=== PATIENT | female | born 1940 | race Caucasian/White ===

== ENCOUNTER → 2017-02-06 | Outpatient (CLI) | payer MEDICARE, OTHER, MEDICAID ==
[~2017-02-06] VITALS: Ht 160 cm; Wt 48.1 kg
[~2017-02-06] MED LIST: ASPI81TA85 PO; CALCTAB7 PO; CO Q100C10 PO; CRAN125T PO; FISH1000 PO; FOLI800C PO; LIDOCAINE 2% INJ 100 MG/5 ML SDV (FOR ANES.) As Ordered ONE; MAGN250T9 PO; NS 1,000 ML IV ONE; PROPOFOL 200 MG/20 ML VIAL As Ordered ONE; SYNT88TA2 PO; VITA100T20 PO; VITA100T96 PO; VITA20008 PO; tumeric PO
--- NOTE | 2017-02-06 08:15 | ROOR ---
Patient Name: Marilee Jones Procedure Date: 02/06/2017 7:53 AM Date of : 1940 Age: 76 Room: [facility] Gender: Female Note Status: Finalized Procedure: Colonoscopy Indications: High risk colon cancer surveillance: Personal history of colonic polyps, Last colonoscopy: May 2014, Family history of colon cancer in a first-degree relative (father 60 y.o) Providers: Nam LUNA MD Referring MD: Rachael SMITH DO Requestlia Provider: Medicines: Monitored Anesthesia Care Complications: No immediate complications. Procedure: Pre-Anesthesia Assessment: - The heart rate, respiratory rate, oxygen saturations, blood pressure, adequacy of pulmonary ventilation, and response to care were monitored throughout the procedure. The Colonoscope was introduced through the anus and advanced to the cecum, identified by appendiceal orifice and ileocecal valve. The colonoscopy was performed without difficulty. The patient tolerated the procedure well. The quality of the bowel preparation was good. Findings: The perianal and digital rectal examinations were normal. Two sessile polyps were found in the hepatic flexure. The polyps were diminutive in size. These polyps were removed with a cold snare. Resection and retrieval were complete. Multiple medium-mouthed diverticula were found in the sigmoid colon. (moderate to severe) Small Internal Hemorrhoids. The exam was otherwise without abnormality. Impression: - Two diminutive polyps at the hepatic flexure, removed with a cold snare. Resected and retrieved. - Diverticulosis in the sigmoid colon. - Small Internal Hemorrhoids. - The examination was otherwise normal. Recommendation: - Repeat colonoscopy in 5 years for surveillance. Nam Luna MD Nam LUNA MD 02/06/2017 8:15:26 AM This report has been signed electronically. Number of Addenda: 0 Note Initiated On: 02/06/2017 7:53 AM Estimated Blood Loss: Estimated blood loss: none.
[2017-02-06 08:35] VITALS: BP 152/65
== END | disposition home or self-care (01) ==
LOC: M OPP 06:57
PROVIDERS: ATTEND Internal Medicine Gastroenterology
DX: Z12.11 Encounter for screening for malignant neoplasm of colon (principal); Z86.010 Personal history of colon polyps; Z80.0 Family history of malignant neoplasm of digestive organs; D12.3 Benign neoplasm of transverse colon; K57.30 Diverticulosis of large intestine without perforation or abscess without bleeding; K64.8 Other hemorrhoids; E03.9 Hypothyroidism, unspecified; Z87.891 Personal history of nicotine dependence; Z79.899 Other long term (current) drug therapy; Z79.82 Long term (current) use of aspirin; Z88.5 Allergy status to narcotic agent

== ENCOUNTER → 2017-10-07 | Outpatient (CLI) | payer OTHER | LOC: M WHC 10:56 | DX: Z12.31 Encounter for screening mammogram for malignant neoplasm of breast (principal); Z78.0 Asymptomatic menopausal state; Z85.850 Personal history of malignant neoplasm of thyroid; Z80.0 Family history of malignant neoplasm of digestive organs | CPT/HCPCS: 77067 ==

== ENCOUNTER → 2017-10-13 | Outpatient (CLI) | payer OTHER, MEDICAID ==
[2017-10-13 15:02] LABS: BASO % 0.8 % (0.0-1.0); EOS # 0.1 10^3/uL (0.0-0.50); EOS % 2.5 % (0.0-3.0); HEMATOCRIT 44.9 % (36.0-47.0); HEMOGLOBIN 14.6 g/dl (12.0-16.0); IMMATURE GRANULOCYTE % 0.2 % (0-3.0); LYMPH # 1.2 10^3/uL (1.5-4.5); LYMPH % 24.1 % (24.0-44.0); MEAN CORPUSCULAR HEMOGLOBIN 31.3 pg (27.0-33.0); MEAN CORPUSCULAR HGB CONC 32.5 g/dl (32.0-36.5); MEAN CORPUSCULAR VOLUME 96.1 fl (80.0-96.0); MONO # 0.4 10^3/uL (0.0-0.8); MONO % 9.1 % (0.0-5.0); NEUTROPHILS # 3.1 10^3/uL (1.8-7.7); NEUTROPHILS % 63.3 % (36.0-66.0); PLATELET COUNT, AUTOMATED 274 10^3/uL (150-450); RED BLOOD COUNT 4.67 10^6/uL (4.00-5.40); RED CELL DISTRIBUTION WIDTH 12.3 % (11.5-14.5); WHITE BLOOD COUNT 4.8 10^3/uL (4.0-10.0)
[2017-10-13 15:08] LABS: CHOLESTEROL LEVEL 168 MG/DL (<200); CHOLESTEROL RISK RATIO 2.074 (<5); FREE T4 1.11 NG/DL (0.76-1.46); HDL CHOLESTEROL 81 MG/DL (>40); LDL CHOLESTEROL 76.2 MG/DL (<100); NON-HDL-C 87 MG/DL; TRIGLYCERIDES LEVEL 54 MG/DL (<150)
== END ==
LOC: M SMT 09:01
DX: E89.0 Postprocedural hypothyroidism (principal); I35.1 Nonrheumatic aortic (valve) insufficiency
CPT/HCPCS: 84443

== ENCOUNTER → 2018-06-11 | Outpatient (CLI) | payer OTHER, MEDICAID ==
[2018-06-11 17:44] LABS: BASO % 0.7 % (0.0-1.0); EOS # 0.1 10^3/uL (0.0-0.50); EOS % 1.7 % (0.0-3.0); HEMATOCRIT 43.1 % (36.0-47.0); HEMOGLOBIN 14.3 g/dl (12.0-15.5); IMMATURE GRANULOCYTE % 0.3 % (0-3.0); LYMPH # 1.1 10^3/uL (1.5-4.5); LYMPH % 18.4 % (24.0-44.0); MEAN CORPUSCULAR HEMOGLOBIN 31.8 pg (27.0-33.0); MEAN CORPUSCULAR HGB CONC 33.2 g/dl (32.0-36.5); MONO # 0.5 10^3/uL (0.0-0.8); MONO % 8.6 % (0.0-5.0); NEUTROPHILS # 4.2 10^3/uL (1.8-7.7); NEUTROPHILS % 70.3 % (36.0-66.0); PLATELET COUNT, AUTOMATED 236 10^3/uL (150-450); RED BLOOD COUNT 4.49 10^6/uL (4.00-5.40); RED CELL DISTRIBUTION WIDTH 11.9 % (11.5-14.5); WHITE BLOOD COUNT 5.9 10^3/uL (4.0-10.0)
[2018-06-11 17:59] LABS: ALKALINE PHOSPHATASE 57 U/L (45-117); ALT/SGPT 22 U/L (12-78); ANION GAP 5 MEQ/L (8-16); AST/SGOT 19 U/L (7-37); BLOOD UREA NITROGEN 17 MG/DL (7-18); CALCIUM LEVEL 9.1 MG/DL (8.8-10.2); CARBON DIOXIDE LEVEL 31 MEQ/L (21-32); CHLORIDE LEVEL 105 MEQ/L (98-107); CREATININE FOR GFR 0.79 MG/DL (0.55-1.30); GLOMERULAR FILTRATION RATE > 60.0 (>39); GLUCOSE, FASTING 91 MG/DL (70-100); SODIUM LEVEL 141 MEQ/L (136-145)
[2018-06-11 18:00] LABS: ALBUMIN 3.8 GM/DL (3.2-5.2); ALBUMIN/GLOBULIN RATIO 1.46 (1.00-1.93); BILIRUBIN,TOTAL 0.3 MG/DL (0.2-1.0); CHOLESTEROL LEVEL 173 MG/DL (<200); CHOLESTEROL RISK RATIO 2.703 (<5); FREE T4 1.45 NG/DL (0.76-1.46); HDL CHOLESTEROL 64 MG/DL (>40); LDL CHOLESTEROL 84 MG/DL (<100); NON-HDL-C 109 MG/DL; THYROID STIMULATING HORMONE 0.184 uIU/ML (0.358-3.740); TOTAL PROTEIN 6.4 GM/DL (6.4-8.2); TRIGLYCERIDES LEVEL 126 MG/DL (<150)
== END ==
LOC: M SMT 12:11
DX: E89.0 Postprocedural hypothyroidism (principal); I10 Essential (primary) hypertension; I65.21 Occlusion and stenosis of right carotid artery
CPT/HCPCS: 84443

== ENCOUNTER → 2018-06-22 | Outpatient (CLI) | payer OTHER, MEDICAID ==
[2018-06-22 18:14] LABS: FREE T4 1.28 NG/DL (0.76-1.46); THYROID STIMULATING HORMONE 0.293 uIU/ML (0.358-3.740)
== END ==
LOC: M SMT 11:43
DX: E89.0 Postprocedural hypothyroidism (principal)
CPT/HCPCS: 84443

== ENCOUNTER → 2018-08-11 | Outpatient (CLI) | payer MEDICAID, OTHER ==
[~2018-08-11] MED LIST changes: -LIDOCAINE 2% INJ 100 MG/5 ML SDV (FOR ANES.) As Ordered ONE; -NS 1,000 ML IV ONE; -PROPOFOL 200 MG/20 ML VIAL As Ordered ONE
--- NOTE | 2018-08-11 17:45 | REP ---
Clinical: Suspicion of abdominal aortic aneurysm. Technique: Real time hull scale and color evaluation using curved array transducer. Findings: Ultrasound examination demonstrates mild atheromatous plaquing throughout the visualized abdominal aorta without evidence for abdominal aortic aneurysm. Proximal aorta: 1.9 x 1.9 cm Aorta and renal arteries: 1.6 x 1.8 cm Mid aorta: 1.3 x 1.4 cm Distal aorta: 1.5 x 1.4 cm Right common iliac artery: 0.9 x 0.6 cm Left common iliac artery: 0.8 x 0.6 cm Impression: Mild diffuse atheromatous plaquing. No aneurysm. Electronically Signed by Juan Maguire MD 08/11/2018 05:36 P
== END ==
LOC: M RAD 09:08
PROVIDERS: ATTEND Physician Assistant
DX: Z13.6 Encounter for screening for cardiovascular disorders (principal)

== ENCOUNTER → 2018-09-13 | Outpatient (CLI) | payer MEDICARE ==
[2018-09-13 17:20] LABS: FREE T4 1.27 NG/DL (0.76-1.46); THYROID STIMULATING HORMONE 0.105 uIU/ML (0.358-3.740)
== END ==
LOC: M SMT 13:14
PROVIDERS: ATTEND Physician Assistant
DX: E89.0 Postprocedural hypothyroidism (principal)

== ENCOUNTER → 2018-10-18 | Outpatient (CLI) | payer MEDICARE ==
--- NOTE | 2018-10-19 08:55 | REPMRS ---
Patient History The patient states she has not had a clinical breast exam in over a year. Family history of colorectal cancer at age 50 or over in father. Digital Woman Screen Mammo: October 18, 2018 - Exam #: [id number] Bilateral CC and MLO view(s) were taken. Technologist: Deandra Patricio, Technologist Prior study comparison: October 07, 2017, digital woman screen mammo performed at [facility]. June 13, 2016, digital woman screen mammo performed at [facility]. January 10, 2015, digital woman screen mammo performed at [facility]. FINDINGS: There are scattered fibroglandular densities. There is a moderate amount of residual fibroglandular tissue which is fairly symmetric. There is no interval development of dominant mass, architectural distortion, or clustered microcalcification typical of malignancy. There has been no change in the appearance of the mammogram from the prior studies. 3-D tomosynthesis shows no additional findings. Assessment: BI-RADS/ACR category 1 mammogram. Negative Mammogram. Recommendation Routine screening mammogram of both breasts in 1 year (for women over age 40). This patient's Lifetime Breast Cancer RIsk is estimated at 2.1 %. This mammogram was interpreted with the aid of an FDA-approved computer-aided dectection system. Electronically Signed By: Sotero Goodwin MD 10/19/18 [id number]
== END ==
LOC: M WHC 14:59
PROVIDERS: ATTEND Family Medicine
DX: Z12.31 Encounter for screening mammogram for malignant neoplasm of breast (principal); Z80.0 Family history of malignant neoplasm of digestive organs

== ENCOUNTER → 2019-08-02 | Outpatient (CLI) | payer MEDICARE, MEDICAID ==
[~2019-08-02] MED LIST changes: -VITA100T20 PO; +VITA100T51 PO; +VITA100T77 PO; -VITA100T96 PO
--- NOTE | 2019-08-02 16:09 | REP ---
LEFT SHOULDER, THREE VIEWS: Three views of the left shoulder are performed. No acute fracture or dislocation is seen. There is mild narrowing and spurring at the glenohumeral and acromioclavicular joints. IMPRESSION: Mild degenerative changes as above. Unreviewed
== END ==
LOC: M RAD 14:05
PROVIDERS: ATTEND Family Medicine
DX: M65.222 Calcific tendinitis, left upper arm (principal)

== ENCOUNTER → 2019-09-25 | Outpatient (REF) | payer MEDICARE ==
[2019-09-25 15:31] LABS: APPEARANCE, URINE HAZY (CLEAR); BACTERIA, URINE AUTO 1+ (NEGATIVE); BILIRUBIN, URINE AUTO NEGATIVE (NEGATIVE); BLOOD, URINE BLOOD 3+ (NEGATIVE); COLOR, URINE RED (YELLOW); GLUCOSE, URINE (UA) AUTO NEGATIVE (NEGATIVE); KETONE, URINE AUTO NEGATIVE (NEGATIVE); LEUKOCYTE ESTERASE, URINE AUTO 2+ (NEGATIVE); NITRITE, URINE AUTO NEGATIVE (NEGATIVE); PROTEIN, URINE AUTO 1+ mg/dL (NEGATIVE); RBC, URINE AUTO TNTC /HPF (0-3); SPECIFIC GRAVITY URINE AUTO 1.005 (1.002-1.035); SQUAMOUS EPITHELIAL CELL UR AU 0 /HPF (0-6); UROBILINOGEN, URINE AUTO 0.2 mg/dL (0.0-2.0); WBC, URINE AUTO 127 /HPF (0-3)
== END ==
LOC: M LAB REF 15:58
PROVIDERS: ATTEND Physician Assistant
DX: N39.0 Urinary tract infection, site not specified (principal)

== ENCOUNTER → 2020-01-09 | Outpatient (CLI) | payer MEDICARE ==
--- NOTE | 2020-01-09 14:04 | REPMRS ---
Patient History The patient states she has not had a clinical breast exam in over a year. Family history of colorectal cancer at age 50 or over in father. Digital Woman Screen Mammo: January 09, 2020 - Exam #: [id number] Bilateral CC and MLO view(s) were taken. Technologist: Aubrie Gunter, Technologist Prior study comparison: October 18, 2018, bilateral digital woman screen mammo performed at [facility]. October 07, 2017, digital woman screen mammo performed at [facility]. June 13, 2016, digital woman screen mammo performed at [facility]. FINDINGS: There are scattered fibroglandular densities. The Volpara volumetric breast density category is:B. There has been no change in the appearance of the mammogram from the prior studies. There is a mild amount of scattered fibroglandular density which is fairly symmetric. There is no interval development of dominant mass, architectural distortion, or grouped microcalcification suggestive of malignancy. 3-D tomosynthesis shows no additional findings. Assessment: BI-RADS/ACR category 1 mammogram. Negative Mammogram. Recommendation Routine screening mammogram of both breasts in 1 year (for women over age 40). This patient's Lifetime Breast Cancer Risk is estimated at 1.8 %. This mammogram was interpreted with the aid of an FDA-approved computer-aided dectection system. Electronically Signed By: Sotero Goodwin MD 01/09/20 [id number]
--- NOTE | 2020-01-12 15:01 | DEXA ---
AP SPINE L1 - L4 1.209 0.1 1.9 LT FEMUR TOTAL 0.878 -1.0 0.9 LT NECK 0.804 -1.7 0.4 RT FEMUR TOTAL 0.919 -0.7 1.2 RT NECK 0.828 -1.5 0.6 TOTAL BODY TOTAL OTHER COMMENTS: Normal bone densitometry of the spine. There is low bone density of the hips. The decreased density of the spine does represent a significant change. The decreased density of the left hip does represent a significant change. The decreased density of the right hip does represent a significant change. The density of the spine has decreased 18.3% since initial exam on 07/17/2003. The decreased 9.8% since the most recent exam on 01/02/2014. The density of the left hip has decreased 16.1% since the initial exam on 07/17/2003. The density of the left hip has decreased 7.0% since the most recent exam on 01/02/2014. The density of the right hip has decreased 13.1% since the initial exam on 07/17/2003. The density of the right hip has decreased 5.7% since the most recent exam on 01/02/2014. FOLLOW-UP: Recommendation for the next bone density exam: 2 years. SADAF
== END ==
LOC: M WHC 12:58
PROVIDERS: ATTEND Family Medicine
DX: Z12.31 Encounter for screening mammogram for malignant neoplasm of breast (principal); Z13.820 Encounter for screening for osteoporosis; Z80.0 Family history of malignant neoplasm of digestive organs; M85.851 Other specified disorders of bone density and structure, right thigh; M85.852 Other specified disorders of bone density and structure, left thigh

== ENCOUNTER → 2020-01-18 | Outpatient (CLI) | payer MEDICARE, MEDICAID ==
[2020-01-18 12:33] LABS: BASO % 0.7 % (0.0-1.0); EOS # 0.1 10^3/uL (0.0-0.5); EOS % 1.6 % (0.0-3.0); HEMATOCRIT 42.6 % (36.0-47.0); HEMOGLOBIN 14.1 g/dl (12.0-15.5); LYMPH % 21.6 % (24.0-44.0); MEAN CORPUSCULAR HEMOGLOBIN 31.3 pg (27.0-33.0); MEAN CORPUSCULAR HGB CONC 33.1 g/dl (32.0-36.5); MEAN CORPUSCULAR VOLUME 94.7 fl (80.0-96.0); MONO # 0.5 10^3/uL (0.0-0.8); MONO % 10.9 % (0.0-5.0); NEUTROPHILS # 2.9 10^3/uL (1.5-8.5); PLATELET COUNT, AUTOMATED 224 10^3/uL (150-450); WHITE BLOOD COUNT 4.5 10^3/uL (4.0-10.0)
[2020-01-18 12:40] LABS: ALBUMIN 3.7 GM/DL (3.2-5.2); ALT/SGPT 27 U/L (12-78); BILIRUBIN,TOTAL 0.6 MG/DL (0.2-1.0); BLOOD UREA NITROGEN 13 MG/DL (7-18); CALCIUM LEVEL 8.7 MG/DL (8.8-10.2); CARBON DIOXIDE LEVEL 27 MEQ/L (21-32); CHLORIDE LEVEL 109 MEQ/L (98-107); CHOLESTEROL LEVEL 173 MG/DL (<200); CHOLESTEROL RISK RATIO 2.369 (<5); CREATININE FOR GFR 0.82 MG/DL (0.55-1.30); FREE T4 1.44 NG/DL (0.76-1.46); GLOMERULAR FILTRATION RATE > 60.0 (>39); GLUCOSE, FASTING 83 MG/DL (70-100); HDL CHOLESTEROL 73 MG/DL (>40); LDL CHOLESTEROL 85 MG/DL (<100); NON-HDL-C 100 MG/DL; POTASSIUM SERUM 4.5 MEQ/L (3.5-5.1); SODIUM LEVEL 143 MEQ/L (136-145); THYROID STIMULATING HORMONE 0.063 uIU/ML (0.358-3.740); TOTAL PROTEIN 6.2 GM/DL (6.4-8.2); TRIGLYCERIDES LEVEL 75 MG/DL (<150)
== END ==
LOC: M WUC 08:50
PROVIDERS: ATTEND Family Medicine
DX: E89.0 Postprocedural hypothyroidism (principal); I34.0 Nonrheumatic mitral (valve) insufficiency; I10 Essential (primary) hypertension

== ENCOUNTER → 2021-12-16 | Outpatient (CLI) | payer OTHER, MEDICAID ==
[~2021-12-16] MED LIST changes: -ASPI81TA85 PO; +ASPI81TA86 PO; +CALC-211 PO; -CALCTAB7 PO
[2021-12-16 10:27] LABS: BASO % 0.7 % (0.0-1.0); EOS # 0.1 10^3/uL (0.0-0.5); EOS % 1.5 % (0.0-3.0); HEMATOCRIT 44.7 % (36.0-47.0); HEMOGLOBIN 14.6 g/dl (12.0-15.5); LYMPH # 1.4 10^3/uL (1.5-5.0); LYMPH % 23.6 % (24.0-44.0); MEAN CORPUSCULAR HEMOGLOBIN 31.2 pg (27.0-33.0); MEAN CORPUSCULAR HGB CONC 32.7 g/dl (32.0-36.5); MEAN CORPUSCULAR VOLUME 95.5 fl (80.0-96.0); MONO # 0.7 10^3/uL (0.0-0.8); MONO % 10.8 % (2.0-8.0); NEUTROPHILS # 3.9 10^3/uL (1.5-8.5); NEUTROPHILS % 62.9 % (36.0-66.0); PLATELET COUNT, AUTOMATED 234 10^3/uL (150-450); RED BLOOD COUNT 4.68 10^6/uL (4.00-5.40); WHITE BLOOD COUNT 6.1 10^3/uL (4.0-10.0)
[2021-12-16 11:13] LABS: ALBUMIN 3.7 GM/DL (3.2-5.2); ALT/SGPT 25 U/L (12-78); BILIRUBIN,TOTAL 0.6 MG/DL (0.2-1.0); BLOOD UREA NITROGEN 15 MG/DL (7-18); CALCIUM LEVEL 9.4 MG/DL (8.8-10.2); CARBON DIOXIDE LEVEL 31 MEQ/L (21-32); CHLORIDE LEVEL 106 MEQ/L (98-107); CHOLESTEROL LEVEL 182 MG/DL (<200); CHOLESTEROL RISK RATIO 2.275 (<5); FREE T4 1.32 NG/DL (0.76-1.46); GLOMERULAR FILTRATION RATE > 60.0 (>32); GLUCOSE, FASTING 87 MG/DL (70-100); HDL CHOLESTEROL 80 MG/DL (>40); LDL CHOLESTEROL 89 MG/DL (<100); NON-HDL-C 102 MG/DL; POTASSIUM SERUM 4.5 MEQ/L (3.5-5.1); SODIUM LEVEL 141 MEQ/L (136-145); THYROID STIMULATING HORMONE 0.221 uIU/ML (0.358-3.740); TOTAL PROTEIN 6.5 GM/DL (6.4-8.2); TRIGLYCERIDES LEVEL 66 MG/DL (<150)
== END ==
LOC: M WUC 08:17
PROVIDERS: ATTEND Family Medicine
DX: E89.0 Postprocedural hypothyroidism (principal); I10 Essential (primary) hypertension; I65.21 Occlusion and stenosis of right carotid artery

== ENCOUNTER → 2022-02-03 | Outpatient (CLI) | payer OTHER, MEDICAID | LOC: M WHC 12:45 | PROVIDERS: ATTEND Family Medicine | DX: M85.851 Other specified disorders of bone density and structure, right thigh (principal); M85.852 Other specified disorders of bone density and structure, left thigh; I65.21 Occlusion and stenosis of right carotid artery; M51.36 Other intervertebral disc degeneration, lumbar region; M51.37 Other intervertebral disc degeneration, lumbosacral region; M54.50 Low back pain, unspecified ==

== ENCOUNTER → 2022-02-03 | Outpatient (CLI) | payer OTHER, MEDICAID | LOC: M RAD 14:18 | PROVIDERS: ATTEND Family Medicine | DX: I65.21 Occlusion and stenosis of right carotid artery (principal); M51.36 Other intervertebral disc degeneration, lumbar region; M51.37 Other intervertebral disc degeneration, lumbosacral region; M54.50 Low back pain, unspecified ==

== ENCOUNTER → 2022-06-23 | Outpatient (CLI) | payer OTHER, MEDICAID ==
[2022-06-23 10:45] LABS: BASO % 0.6 % (0.0-1.0); EOS # 0.1 10^3/uL (0.0-0.5); EOS % 2.7 % (0.0-3.0); HEMATOCRIT 44.7 % (36.0-47.0); HEMOGLOBIN 14.7 g/dl (12.0-15.5); LYMPH # 1.8 10^3/uL (1.5-5.0); LYMPH % 34.4 % (24.0-44.0); MEAN CORPUSCULAR HEMOGLOBIN 31.7 pg (27.0-33.0); MEAN CORPUSCULAR HGB CONC 32.9 g/dl (32.0-36.5); MEAN CORPUSCULAR VOLUME 96.3 fl (80.0-96.0); MONO # 0.5 10^3/uL (0.0-0.8); MONO % 9.4 % (2.0-8.0); NEUTROPHILS # 2.8 10^3/uL (1.5-8.5); NEUTROPHILS % 52.5 % (36.0-66.0); PLATELET COUNT, AUTOMATED 260 10^3/uL (150-450); RED BLOOD COUNT 4.64 10^6/uL (4.00-5.40); WHITE BLOOD COUNT 5.2 10^3/uL (4.0-10.0)
[2022-06-23 11:39] LABS: ALBUMIN 3.5 GM/DL (3.2-5.2); BILIRUBIN,TOTAL 0.5 MG/DL (0.2-1.0); CALCIUM LEVEL 8.9 MG/DL (8.8-10.2); CHOLESTEROL RISK RATIO 2.589 (<5); CREATININE FOR GFR 1.01 MG/DL (0.55-1.30); FREE T4 1.12 NG/DL (0.76-1.46); POTASSIUM SERUM 4.3 MEQ/L (3.5-5.1); THYROID STIMULATING HORMONE 0.767 uIU/ML (0.358-3.740); TOTAL PROTEIN 6.5 GM/DL (6.4-8.2)
[2022-06-23 12:42] LABS: TOTAL 25(OH) VITAMIN D 92.2 NG/ML (30.0-100.0)
== END ==
LOC: M WUC 08:07
PROVIDERS: ATTEND Family Medicine
DX: E89.0 Postprocedural hypothyroidism (principal); I10 Essential (primary) hypertension; Z79.899 Other long term (current) drug therapy

== ENCOUNTER → 2022-08-20 | Outpatient (CLI) | payer OTHER, MEDICAID ==
[2022-08-20 16:12] LABS: HEMATOCRIT 43.8 % (36.0-47.0); HEMOGLOBIN 14.1 g/dl (12.0-15.5); MEAN CORPUSCULAR HEMOGLOBIN 31.5 pg (27.0-33.0); MEAN CORPUSCULAR HGB CONC 32.2 g/dl (32.0-36.5); MEAN CORPUSCULAR VOLUME 97.8 fl (80.0-96.0); PLATELET COUNT, AUTOMATED 242 10^3/uL (150-450); RED BLOOD COUNT 4.48 10^6/uL (4.00-5.40); WHITE BLOOD COUNT 5.4 10^3/uL (4.0-10.0)
[2022-08-20 16:19] LABS: ALBUMIN 3.5 G/DL (3.2-5.2); ALKALINE PHOSPHATASE 62 U/L (46-116); ALT/SGPT 27 U/L (7.0-40); AST/SGOT 22 U/L (<34); BILIRUBIN,TOTAL 0.6 MG/DL (0.3-1.2); BLOOD UREA NITROGEN 24 MG/DL (9-23); CALCIUM LEVEL 8.4 MG/DL (8.3-10.6); CARBON DIOXIDE LEVEL 28 MMOL/L (20-31); CHLORIDE LEVEL 106 MMOL/L (98-107); CREATININE FOR GFR 0.84 MG/DL (0.55-1.30); GLOMERULAR FILTRATION RATE > 60.0 (>32); GLUCOSE, FASTING 86 MG/DL (74-106); POTASSIUM SERUM 4.2 MMOL/L (3.5-5.1); SODIUM LEVEL 141 MMOL/L (136-145); TOTAL PROTEIN 5.9 G/DL (5.7-8.2)
== END ==
LOC: M WUC 12:57
PROVIDERS: ATTEND Physician Assistant
DX: R06.02 Shortness of breath (principal)

== ENCOUNTER → 2022-10-20 | Outpatient (CLI) | payer OTHER, MEDICAID ==
[2022-10-20 10:22] LABS: BASO # 0.1 10^3/uL (0.0-0.2); BASO % 0.8 % (0.0-1.0); EOS # 0.1 10^3/uL (0.0-0.5); HEMATOCRIT 43.1 % (36.0-47.0); HEMOGLOBIN 14.2 g/dl (12.0-15.5); LYMPH # 1.3 10^3/uL (1.5-5.0); LYMPH % 20.7 % (24.0-44.0); MEAN CORPUSCULAR HEMOGLOBIN 31.8 pg (27.0-33.0); MEAN CORPUSCULAR HGB CONC 32.9 g/dl (32.0-36.5); MEAN CORPUSCULAR VOLUME 96.4 fl (80.0-96.0); MONO # 0.7 10^3/uL (0.0-0.8); MONO % 10.4 % (2.0-8.0); NEUTROPHILS # 4.3 10^3/uL (1.5-8.5); NEUTROPHILS % 65.8 % (36.0-66.0); PLATELET COUNT, AUTOMATED 256 10^3/uL (150-450); RED BLOOD COUNT 4.47 10^6/uL (4.00-5.40); WHITE BLOOD COUNT 6.5 10^3/uL (4.0-10.0)
[2022-10-20 11:09] LABS: BLOOD UREA NITROGEN 21 MG/DL (9-23); CALCIUM LEVEL 8.6 MG/DL (8.3-10.6); CARBON DIOXIDE LEVEL 29 MMOL/L (20-31); CHLORIDE LEVEL 105 MMOL/L (98-107); CREATININE FOR GFR 0.81 MG/DL (0.55-1.30); GLOMERULAR FILTRATION RATE > 60.0 (>32); GLUCOSE, FASTING 96 MG/DL (74-106); POTASSIUM SERUM 4.4 MMOL/L (3.5-5.1); SODIUM LEVEL 140 MMOL/L (136-145)
== END ==
LOC: M LAB 09:31
PROVIDERS: ATTEND Internal Medicine
DX: R06.02 Shortness of breath (principal); R07.89 Other chest pain; I34.0 Nonrheumatic mitral (valve) insufficiency; I35.1 Nonrheumatic aortic (valve) insufficiency; I10 Essential (primary) hypertension; R94.31 Abnormal electrocardiogram [ECG] [EKG]

== ENCOUNTER → 2022-10-24 | Outpatient (CLI) | payer OTHER, MEDICAID ==
[2022-10-24 14:45] LABS: CREATININE FOR GFR 0.76 MG/DL (0.55-1.30); GLOMERULAR FILTRATION RATE > 60.0 (>32)
== END ==
LOC: M LAB 13:43
PROVIDERS: ATTEND Internal Medicine
DX: R07.89 Other chest pain (principal)

== ENCOUNTER → 2022-12-01 | Outpatient (CLI) | payer OTHER, MEDICAID ==
[2022-12-01 13:13] LABS: BASO # 0.1 10^3/uL (0.0-0.2); BASO % 0.7 % (0.0-1.0); EOS # 0.2 10^3/uL (0.0-0.5); EOS % 1.4 % (0.0-3.0); HEMATOCRIT 35.6 % (36.0-47.0); HEMOGLOBIN 11.3 g/dl (12.0-15.5); LYMPH # 1.1 10^3/uL (1.5-5.0); LYMPH % 10.8 % (24.0-44.0); MEAN CORPUSCULAR HGB CONC 31.7 g/dl (32.0-36.5); MEAN CORPUSCULAR VOLUME 97.5 fl (80.0-96.0); MONO % 9.5 % (2.0-8.0); NEUTROPHILS # 8.1 10^3/uL (1.5-8.5); NEUTROPHILS % 76.6 % (36.0-66.0); PLATELET COUNT, AUTOMATED 346 10^3/uL (150-450); RED BLOOD COUNT 3.65 10^6/uL (4.00-5.40); WHITE BLOOD COUNT 10.5 10^3/uL (4.0-10.0)
[2022-12-01 13:40] LABS: ALKALINE PHOSPHATASE 67 U/L (46-116); ALT/SGPT 30 U/L (7.0-40); AST/SGOT 28 U/L (<34); BLOOD UREA NITROGEN 22 MG/DL (9-23); CALCIUM LEVEL 8.3 MG/DL (8.3-10.6); CARBON DIOXIDE LEVEL 27 MMOL/L (20-31); CHLORIDE LEVEL 102 MMOL/L (98-107); CREATININE FOR GFR 0.95 MG/DL (0.55-1.30); GLOMERULAR FILTRATION RATE > 60.0 (>32); GLUCOSE, FASTING 94 MG/DL (74-106); POTASSIUM SERUM 4.4 MMOL/L (3.5-5.1); SODIUM LEVEL 136 MMOL/L (136-145); TOTAL PROTEIN 5.4 G/DL (5.7-8.2)
== END ==
LOC: M PLALAB 10:48
PROVIDERS: ATTEND Family Medicine
DX: I25.10 Atherosclerotic heart disease of native coronary artery without angina pectoris (principal)

== ENCOUNTER 2022-12-05 08:03 | Observation (INO) | payer OTHER, MEDICAID ==
[~2022-12-05] VITALS: Ht 157.5 cm; Wt 53.1 kg
[2022-12-05 08:38] LABS: BASO % 0.4 % (0.0-1.0); EOS # 0.1 10^3/uL (0.0-0.5); EOS % 1.7 % (0.0-3.0); HEMATOCRIT 33.8 % (36.0-47.0); HEMOGLOBIN 10.9 g/dl (12.0-15.5); LYMPH # 1.1 10^3/uL (1.5-5.0); LYMPH % 15.2 % (24.0-44.0); MEAN CORPUSCULAR HEMOGLOBIN 30.4 pg (27.0-33.0); MEAN CORPUSCULAR HGB CONC 32.2 g/dl (32.0-36.5); MEAN CORPUSCULAR VOLUME 94.4 fl (80.0-96.0); MONO # 0.6 10^3/uL (0.0-0.8); MONO % 8.6 % (2.0-8.0); NEUTROPHILS # 5.3 10^3/uL (1.5-8.5); NEUTROPHILS % 73.5 % (36.0-66.0); PLATELET COUNT, AUTOMATED 374 10^3/uL (150-450); RED BLOOD COUNT 3.58 10^6/uL (4.00-5.40); WHITE BLOOD COUNT 7.2 10^3/uL (4.0-10.0)
[2022-12-05 08:57] LABS: INR 1.42; PROTHROMBIN TIME 17.6 SECONDS (12.5-14.5)
[2022-12-05 08:58] LABS: PARTIAL THROMBOPLASTIN TIME 41.2 SECONDS (24.8-34.2)
[2022-12-05] MEDS ORDERED: APIXABAN 5 MG TAB (ELIQUIS) PO SCH (09:00)
[2022-12-05 09:06] LABS: CK-MB VALUE MASS < 1.0 NG/ML (<3.6)
[2022-12-05 09:09] LABS: BLOOD UREA NITROGEN 13 MG/DL (9-23); CALCIUM LEVEL 7.8 MG/DL (8.3-10.6); CARBON DIOXIDE LEVEL 21 MMOL/L (20-31); CHLORIDE LEVEL 107 MMOL/L (98-107); CPK CREATINE PHOSPHOKINASE 24 U/L (34-145); CREATININE FOR GFR 0.83 MG/DL (0.55-1.30); GLOMERULAR FILTRATION RATE > 60.0 (>32); GLUCOSE, FASTING 94 MG/DL (74-106); MB/CK RELATIVE INDEX 4.16 (< OR =4); POTASSIUM SERUM 3.9 MMOL/L (3.5-5.1); SODIUM LEVEL 139 MMOL/L (136-145)
[2022-12-05 09:11] LABS: FREE T4 1.01 NG/DL (0.89-1.76); THYROID STIMULATING HORMONE 16.206 uIU/ML (0.55-4.78)
[2022-12-05 09:13] LABS: RSV AMPLIFICATION NEGATIVE (NEGATIVE)
[2022-12-05] MEDS ORDERED: LEVO75TA4 PO (11:36)
[2022-12-05] MEDS ORDERED: ATOR40TA75 PO (11:41)
[2022-12-05] MEDS ORDERED: METO1TAB32 PO (11:41)
[2022-12-05] MEDS ORDERED: AMIO200T49 PO (11:41)
[2022-12-05] MEDS ORDERED: BELS1TAB2 PO (11:41)
[2022-12-05] MEDS ORDERED: ELIQ5TAB PO (11:41)
[2022-12-05] MEDS ORDERED: HOME MED LIST COMPLETE! XX SCH (11:45)
[2022-12-05] MEDS ORDERED: ACETAMINOPHEN TAB 650MG DOSE (2X325MG) PO PRN (12:00)
[2022-12-05] MEDS ORDERED: MOM 30ML SUSPENSION UDC PO PRN (12:00)
[2022-12-05] MEDS ORDERED: MAALOX 30 ML SUSP *UDC PO PRN (12:00)
[2022-12-05] MEDS: LEVOTHYROXINE 75MCG TABLET (0.075MG) PO SCH (13:01)
[2022-12-05] MEDS: AMIODARONE 200 MG TAB (PACERONE) PO SCH (13:01)
[2022-12-05] MEDS: ATORVASTATIN 20 MG TAB PO SCH (13:02)
[2022-12-05 15:14] VITALS: BP 125/60
[2022-12-05] MEDS: METOPROLOL SUCC *XL* 12.5MG PER 1/2 TAB (TopROL *XL*) PO SCH (15:14)
[2022-12-05 17:19] VITALS: BP 128/63
[2022-12-05 20:00] VITALS: BP 123/58
[2022-12-05] MEDS: APIXABAN 2.5 MG TAB (ELIQUIS) PO SCH (21:04)
[2022-12-05 23:31] VITALS: BP 118/58
[2022-12-06 03:38] VITALS: BP 129/60
[2022-12-06] MEDS: LEVOTHYROXINE 75MCG TABLET (0.075MG) PO SCH (05:26)
[2022-12-06 06:08] LABS: BASO # 0.1 10^3/uL (0.0-0.2); BASO % 0.7 % (0.0-1.0); EOS # 0.2 10^3/uL (0.0-0.5); EOS % 2.3 % (0.0-3.0); HEMATOCRIT 32.8 % (36.0-47.0); HEMOGLOBIN 10.6 g/dl (12.0-15.5); LYMPH # 1.2 10^3/uL (1.5-5.0); LYMPH % 13.7 % (24.0-44.0); MEAN CORPUSCULAR HGB CONC 32.3 g/dl (32.0-36.5); MEAN CORPUSCULAR VOLUME 95.9 fl (80.0-96.0); MONO # 0.8 10^3/uL (0.0-0.8); MONO % 9.5 % (2.0-8.0); NEUTROPHILS # 6.4 10^3/uL (1.5-8.5); NEUTROPHILS % 73.2 % (36.0-66.0); PLATELET COUNT, AUTOMATED 388 10^3/uL (150-450); RED BLOOD COUNT 3.42 10^6/uL (4.00-5.40); WHITE BLOOD COUNT 8.7 10^3/uL (4.0-10.0)
[2022-12-06 06:28] LABS: BLOOD UREA NITROGEN 11 MG/DL (9-23); CALCIUM LEVEL 7.8 MG/DL (8.3-10.6); CARBON DIOXIDE LEVEL 22 MMOL/L (20-31); CHLORIDE LEVEL 109 MMOL/L (98-107); CREATININE FOR GFR 0.71 MG/DL (0.55-1.30); GLOMERULAR FILTRATION RATE > 60.0 (>32); GLUCOSE, FASTING 91 MG/DL (74-106); POTASSIUM SERUM 4.3 MMOL/L (3.5-5.1); SODIUM LEVEL 139 MMOL/L (136-145)
[2022-12-06 07:38] VITALS: BP 113/57
[2022-12-06] MEDS ORDERED: ELIQ2.5T PO (07:45)
[2022-12-06] MEDS: ATORVASTATIN 20 MG TAB PO SCH (09:02)
[2022-12-06] MEDS: APIXABAN 2.5 MG TAB (ELIQUIS) PO SCH (09:02)
[2022-12-06] MEDS: METOPROLOL SUCC *XL* 12.5MG PER 1/2 TAB (TopROL *XL*) PO SCH (09:02)
[2022-12-06] MEDS: AMIODARONE 200 MG TAB (PACERONE) PO SCH (09:02)
== END 2022-12-06 10:30 | disposition home or self-care (01) ==
LOC: M ED 08:03 → EDBD 08:03 → M ED INP 08:04 → ENRESERV 16:35 → M PCU 17:19
PROVIDERS: ADMIT Internal Medicine; ATTEND Internal Medicine
DX: R55 Syncope and collapse (principal); I48.91 Unspecified atrial fibrillation; M96.843 Postprocedural seroma of a musculoskeletal structure following other procedure; M96.841 Postprocedural hematoma of a musculoskeletal structure following other procedure; I25.10 Atherosclerotic heart disease of native coronary artery without angina pectoris; Z95.1 Presence of aortocoronary bypass graft; M79.661 Pain in right lower leg; Z95.2 Presence of prosthetic heart valve; I10 Essential (primary) hypertension; E89.0 Postprocedural hypothyroidism; Z85.850 Personal history of malignant neoplasm of thyroid; M19.90 Unspecified osteoarthritis, unspecified site; Z79.899 Other long term (current) drug therapy; Z79.01 Long term (current) use of anticoagulants; Z79.890 Hormone replacement therapy; Z88.5 Allergy status to narcotic agent; Z87.891 Personal history of nicotine dependence
CPT/HCPCS: 36415; 70450; 71045; 72125; 80048; 82550; 82553; 83605; 83735; 84439; 84443; 84484; 85025; 85610; 85730; 87631; 93005; 93041; 93971; 94760; 97161; 99285; G0378

== ENCOUNTER → 2023-01-21 | Outpatient (CLI) | payer OTHER, MEDICAID ==
[~2023-01-21] MED LIST changes: +AMIO200T49 PO; +ATOR40TA75 PO; +BELS1TAB2 PO; +ELIQ2.5T PO; +ELIQ5TAB PO; +LEVO75TA4 PO; +METO1TAB32 PO
[2023-01-21 13:05] LABS: THYROID STIMULATING HORMONE 0.578 uIU/ML (0.55-4.78)
[2023-01-21 13:06] LABS: FREE T4 1.63 NG/DL (0.89-1.76)
== END ==
LOC: M WUC 08:35
PROVIDERS: ATTEND Nurse Practitioner Adult Health
DX: E89.0 Postprocedural hypothyroidism (principal)

== ENCOUNTER → 2023-05-12 | Outpatient (CLI) | payer OTHER, MEDICAID ==
[2023-05-12 09:18] LABS: HEMATOCRIT 47.4 % (36.0-47.0); HEMOGLOBIN 15.3 g/dl (12.0-15.5); MEAN CORPUSCULAR HEMOGLOBIN 30.9 pg (27.0-33.0); MEAN CORPUSCULAR HGB CONC 32.3 g/dl (32.0-36.5); MEAN CORPUSCULAR VOLUME 95.8 fl (80.0-96.0); PLATELET COUNT, AUTOMATED 215 10^3/uL (150-450); RED BLOOD COUNT 4.95 10^6/uL (4.00-5.40); WHITE BLOOD COUNT 5.1 10^3/uL (4.0-10.0)
[2023-05-12 09:33] LABS: ALBUMIN 3.3 G/DL (3.2-5.2); ALKALINE PHOSPHATASE 71 U/L (46-116); ALT/SGPT 18 U/L (7.0-40); AST/SGOT 13 U/L (<34); BILIRUBIN,TOTAL 0.6 MG/DL (0.3-1.2); BLOOD UREA NITROGEN 24 MG/DL (9-23); CALCIUM LEVEL 8.8 MG/DL (8.3-10.6); CARBON DIOXIDE LEVEL 31 MMOL/L (20-31); CHLORIDE LEVEL 106 MMOL/L (98-107); CHOLESTEROL LEVEL 190 MG/DL (<200); CHOLESTEROL RISK RATIO 3.07 (<5); CREATININE FOR GFR 0.91 MG/DL (0.55-1.30); GLOMERULAR FILTRATION RATE > 60.0 (>32); GLUCOSE, FASTING 89 MG/DL (74-106); HDL CHOLESTEROL 61.7 MG/DL (>40); LDL CHOLESTEROL 103.7 MG/DL (<100); NON-HDL-C 128.3 MG/DL; POTASSIUM SERUM 4.6 MMOL/L (3.5-5.1); SODIUM LEVEL 142 MMOL/L (136-145); TRIGLYCERIDES LEVEL 123 MG/DL (<150)
== END ==
LOC: M LAB 08:02
PROVIDERS: ATTEND Physician Assistant
DX: I25.10 Atherosclerotic heart disease of native coronary artery without angina pectoris (principal)

== ENCOUNTER → 2023-07-29 | Outpatient (CLI) | payer OTHER, MEDICAID ==
[2023-07-29 08:35] LABS: BASO % 0.6 % (0.0-1.0); EOS # 0.1 10^3/uL (0.0-0.5); EOS % 2.7 % (0.0-3.0); HEMATOCRIT 46.9 % (36.0-47.0); HEMOGLOBIN 15.2 g/dl (12.0-15.5); LYMPH # 1.5 10^3/uL (1.5-5.0); LYMPH % 29.4 % (24.0-44.0); MEAN CORPUSCULAR HEMOGLOBIN 30.8 pg (27.0-33.0); MEAN CORPUSCULAR HGB CONC 32.4 g/dl (32.0-36.5); MEAN CORPUSCULAR VOLUME 95.1 fl (80.0-96.0); MONO # 0.6 10^3/uL (0.0-0.8); MONO % 11.5 % (2.0-8.0); NEUTROPHILS # 2.9 10^3/uL (1.5-8.5); NEUTROPHILS % 55.6 % (36.0-66.0); PLATELET COUNT, AUTOMATED 218 10^3/uL (150-450); RED BLOOD COUNT 4.93 10^6/uL (4.00-5.40); WHITE BLOOD COUNT 5.2 10^3/uL (4.0-10.0)
[2023-07-29 08:57] LABS: ALBUMIN 3.4 G/DL (3.2-5.2); ALKALINE PHOSPHATASE 57 U/L (46-116); ALT/SGPT 23 U/L (7.0-40); AST/SGOT 15 U/L (<34); BILIRUBIN,TOTAL 0.6 MG/DL (0.3-1.2); BLOOD UREA NITROGEN 29 MG/DL (9-23); CALCIUM LEVEL 8.9 MG/DL (8.3-10.6); CARBON DIOXIDE LEVEL 30 MMOL/L (20-31); CHLORIDE LEVEL 108 MMOL/L (98-107); CHOLESTEROL LEVEL 195 MG/DL (<200); CHOLESTEROL RISK RATIO 3.66 (<5); CREATININE FOR GFR 0.88 MG/DL (0.55-1.30); FREE T4 1.33 NG/DL (0.89-1.76); GLOMERULAR FILTRATION RATE > 60.0 (>32); GLUCOSE, FASTING 91 MG/DL (74-106); HDL CHOLESTEROL 53.2 MG/DL (>40); LDL CHOLESTEROL 122.8 MG/DL (<100); NON-HDL-C 141.8 MG/DL; POTASSIUM SERUM 4.2 MMOL/L (3.5-5.1); SODIUM LEVEL 140 MMOL/L (136-145); TRIGLYCERIDES LEVEL 95 MG/DL (<150)
== END ==
LOC: M LAB 07:44
PROVIDERS: ATTEND Family Medicine
DX: E89.0 Postprocedural hypothyroidism (principal); I10 Essential (primary) hypertension; I25.10 Atherosclerotic heart disease of native coronary artery without angina pectoris

== ENCOUNTER → 2023-09-22 | Outpatient (CLI) | payer OTHER, MEDICAID | LOC: M RAD 07:26 | PROVIDERS: ATTEND Internal Medicine Critical Care Medicine | DX: R06.00 Dyspnea, unspecified (principal) ==

== ENCOUNTER → 2023-09-22 | Outpatient (CLI) | payer OTHER, MEDICAID ==
[2023-09-22 08:11] LABS: BASO % 0.7 % (0.0-1.0); EOS # 0.1 10^3/uL (0.0-0.5); EOS % 1.9 % (0.0-3.0); HEMATOCRIT 46.1 % (36.0-47.0); HEMOGLOBIN 15.4 g/dl (12.0-15.5); LYMPH # 1.3 10^3/uL (1.5-5.0); LYMPH % 22.6 % (24.0-44.0); MEAN CORPUSCULAR HGB CONC 33.4 g/dl (32.0-36.5); MEAN CORPUSCULAR VOLUME 92.8 fl (80.0-96.0); MONO # 0.6 10^3/uL (0.0-0.8); MONO % 9.8 % (2.0-8.0); NEUTROPHILS # 3.7 10^3/uL (1.5-8.5); NEUTROPHILS % 64.5 % (36.0-66.0); PLATELET COUNT, AUTOMATED 256 10^3/uL (150-450); RED BLOOD COUNT 4.97 10^6/uL (4.00-5.40); WHITE BLOOD COUNT 5.7 10^3/uL (4.0-10.0)
[2023-09-22 08:37] LABS: ALBUMIN 3.6 G/DL (3.2-5.2); ALKALINE PHOSPHATASE 64 U/L (46-116); ALT/SGPT 17 U/L (7.0-40); AST/SGOT 17 U/L (<34); BILIRUBIN,TOTAL 0.4 MG/DL (0.3-1.2); BLOOD UREA NITROGEN 25 MG/DL (9-23); CARBON DIOXIDE LEVEL 30 MMOL/L (20-31); CHLORIDE LEVEL 107 MMOL/L (98-107); CHOLESTEROL LEVEL 185 MG/DL (<200); CREATININE FOR GFR 0.87 MG/DL (0.55-1.30); GLOMERULAR FILTRATION RATE > 60.0 (>32); GLUCOSE, FASTING 93 MG/DL (74-106); LDL CHOLESTEROL 115.8 MG/DL (<100); POTASSIUM SERUM 4.7 MMOL/L (3.5-5.1); SODIUM LEVEL 139 MMOL/L (136-145); TOTAL PROTEIN 6.4 G/DL (5.7-8.2); TRIGLYCERIDES LEVEL 96 MG/DL (<150)
[2023-09-22 08:38] LABS: THYROID STIMULATING HORMONE 1.931 uIU/ML (0.55-4.78)
[2023-09-22 08:39] LABS: FREE T4 1.37 NG/DL (0.89-1.76)
== END ==
LOC: M LAB 07:24
PROVIDERS: ATTEND Family Medicine
DX: I10 Essential (primary) hypertension (principal); I25.10 Atherosclerotic heart disease of native coronary artery without angina pectoris; E89.0 Postprocedural hypothyroidism

== ENCOUNTER → 2024-02-03 | Outpatient (CLI) | payer OTHER, MEDICAID ==
[2024-02-03 08:01] LABS: BASO % 0.3 % (0.0-1.0); EOS # 0.1 10^3/uL (0.0-0.5); EOS % 2.2 % (0.0-3.0); HEMOGLOBIN 15.2 g/dl (12.0-15.5); LYMPH # 1.4 10^3/uL (1.5-5.0); LYMPH % 22.9 % (24.0-44.0); MEAN CORPUSCULAR HEMOGLOBIN 31.5 pg (27.0-33.0); MEAN CORPUSCULAR VOLUME 95.4 fl (80.0-96.0); MONO # 0.6 10^3/uL (0.0-0.8); MONO % 10.8 % (2.0-8.0); NEUTROPHILS # 3.7 10^3/uL (1.5-8.5); NEUTROPHILS % 63.5 % (36.0-66.0); PLATELET COUNT, AUTOMATED 230 10^3/uL (150-450); RED BLOOD COUNT 4.82 10^6/uL (4.00-5.40); WHITE BLOOD COUNT 5.9 10^3/uL (4.0-10.0)
[2024-02-03 08:20] LABS: ALBUMIN 3.6 G/DL (3.2-5.2); ALKALINE PHOSPHATASE 72 U/L (46-116); ALT/SGPT 18 U/L (7.0-40); AST/SGOT 15 U/L (<34); BILIRUBIN,TOTAL 0.7 MG/DL (0.3-1.2); BLOOD UREA NITROGEN 19 MG/DL (9-23); CALCIUM LEVEL 9.3 MG/DL (8.3-10.6); CARBON DIOXIDE LEVEL 31 MMOL/L (20-31); CHLORIDE LEVEL 107 MMOL/L (98-107); CHOLESTEROL LEVEL 159 MG/DL (<200); CHOLESTEROL RISK RATIO 3.02 (<5); CREATININE FOR GFR 0.83 MG/DL (0.55-1.30); GLOMERULAR FILTRATION RATE > 60.0 (>32); GLUCOSE, FASTING 89 MG/DL (74-106); HDL CHOLESTEROL 52.5 MG/DL (>40); LDL CHOLESTEROL 90.9 MG/DL (<100); NON-HDL-C 106.5 MG/DL; POTASSIUM SERUM 4.7 MMOL/L (3.5-5.1); SODIUM LEVEL 142 MMOL/L (136-145); TOTAL PROTEIN 6.2 G/DL (5.7-8.2); TRIGLYCERIDES LEVEL 78 MG/DL (<150)
[2024-02-03 08:21] LABS: THYROID STIMULATING HORMONE 0.378 uIU/ML (0.55-4.78)
[2024-02-03 08:22] LABS: FREE T4 1.35 NG/DL (0.89-1.76)
== END ==
LOC: M LAB 06:54
PROVIDERS: ATTEND Nurse Practitioner Adult Health
DX: E89.0 Postprocedural hypothyroidism (principal); I25.10 Atherosclerotic heart disease of native coronary artery without angina pectoris; I10 Essential (primary) hypertension

== ENCOUNTER → 2024-07-14 | Outpatient (CLI) | payer OTHER, MEDICAID | LOC: M WHC 10:24 | PROVIDERS: ATTEND Family Medicine | DX: Z13.820 Encounter for screening for osteoporosis (principal); M85.852 Other specified disorders of bone density and structure, left thigh; M85.851 Other specified disorders of bone density and structure, right thigh ==

== ENCOUNTER → 2024-08-03 | Outpatient (CLI) | payer OTHER, MEDICAID ==
[2024-08-03 07:39] LABS: BASO % 0.7 % (0.0-1.0); EOS # 0.2 10^3/uL (0.0-0.5); EOS % 3.5 % (0.0-3.0); HEMATOCRIT 45.2 % (36.0-47.0); HEMOGLOBIN 15.1 g/dl (12.0-15.5); LYMPH # 1.3 10^3/uL (1.5-5.0); LYMPH % 29.6 % (24.0-44.0); MEAN CORPUSCULAR HEMOGLOBIN 31.7 pg (27.0-33.0); MEAN CORPUSCULAR HGB CONC 33.4 g/dl (32.0-36.5); MONO # 0.6 10^3/uL (0.0-0.8); MONO % 12.1 % (2.0-8.0); NEUTROPHILS # 2.4 10^3/uL (1.5-8.5); NEUTROPHILS % 53.9 % (36.0-66.0); PLATELET COUNT, AUTOMATED 222 10^3/uL (150-450); RED BLOOD COUNT 4.76 10^6/uL (4.00-5.40); WHITE BLOOD COUNT 4.5 10^3/uL (4.0-10.0)
[2024-08-03 08:07] LABS: ALBUMIN 3.4 G/DL (3.2-5.2); ALKALINE PHOSPHATASE 70 U/L (35-104); ALT/SGPT 19 U/L (7.0-40); AST/SGOT 21 U/L (<34); BILIRUBIN,TOTAL 0.5 MG/DL (0.3-1.2); BLOOD UREA NITROGEN 23 MG/DL (9-23); CALCIUM LEVEL 9.5 MG/DL (8.3-10.6); CARBON DIOXIDE LEVEL 30 MMOL/L (20-31); CHLORIDE LEVEL 108 MMOL/L (98-107); CHOLESTEROL LEVEL 178 MG/DL (<200); CREATININE FOR GFR 0.85 MG/DL (0.55-1.30); GLOMERULAR FILTRATION RATE > 60.0 (>32); GLUCOSE, FASTING 91 MG/DL (74-106); HDL CHOLESTEROL 57.4 MG/DL (>40); NON-HDL-C 120.6 MG/DL; POTASSIUM SERUM 4.2 MMOL/L (3.5-5.1); SODIUM LEVEL 142 MMOL/L (136-145); TOTAL PROTEIN 6.3 G/DL (5.7-8.2); TRIGLYCERIDES LEVEL 68 MG/DL (<150)
[2024-08-03 08:09] LABS: FREE T4 1.29 NG/DL (0.89-1.76); THYROID STIMULATING HORMONE 0.305 uIU/ML (0.55-4.78)
== END ==
LOC: M LAB 07:05
PROVIDERS: ATTEND Family Medicine
DX: I25.10 Atherosclerotic heart disease of native coronary artery without angina pectoris (principal); E89.0 Postprocedural hypothyroidism; I10 Essential (primary) hypertension

== ENCOUNTER → 2024-09-15 | Outpatient (CLI) | payer OTHER, MEDICAID ==
[2024-09-15 07:54] LABS: FREE T4 1.16 NG/DL (0.89-1.76); THYROID STIMULATING HORMONE 6.921 uIU/ML (0.55-4.78)
== END ==
LOC: M LAB 06:55
PROVIDERS: ATTEND Nurse Practitioner Adult Health
DX: E89.0 Postprocedural hypothyroidism (principal)

== ENCOUNTER → 2024-11-11 | Outpatient (CLI) | payer OTHER, MEDICAID ==
[2024-11-11 08:30] LABS: THYROID STIMULATING HORMONE 2.064 uIU/ML (0.55-4.78)
[2024-11-11 08:31] LABS: FREE T4 1.31 NG/DL (0.89-1.76)
== END ==
LOC: M LAB 07:02
PROVIDERS: ATTEND Nurse Practitioner Adult Health
DX: E89.0 Postprocedural hypothyroidism (principal)

== ENCOUNTER → 2025-08-15 | Outpatient (CLI) | payer OTHER, MEDICAID ==
[~2025-08-15] MED LIST changes: -AMIO200T49 PO; +AMIO200T54 PO
[2025-08-15 07:41] LABS: BASO # 0.0 10^3/uL (0.0-0.2); BASO % 0.5 % (0.0-1.0); EOS # 0.2 10^3/uL (0.0-0.5); EOS % 2.6 % (0.0-3.0); LYMPH # 1.3 10^3/uL (1.5-5.0); LYMPH % 23.1 % (24.0-44.0); MONO # 0.5 10^3/uL (0.0-0.8); MONO % 9.0 % (2.0-8.0); NEUTROPHILS # 3.7 10^3/uL (1.5-8.5); NEUTROPHILS % 64.6 % (36.0-66.0); PLATELET COUNT, AUTOMATED 216 10^3/uL (150-450)
[2025-08-15 08:07] LABS: ALT/SGPT 14.0 U/L (7.0-40); AST/SGOT 17.0 U/L (<34); CALCIUM LEVEL 8.8 MG/DL (8.3-10.6); CARBON DIOXIDE LEVEL 30.0 MMOL/L (20-31); CHLORIDE LEVEL 106.0 MMOL/L (98-107); CHOLESTEROL LEVEL 175.0 MG/DL (<200); CHOLESTEROL RISK RATIO 3.28 (<5); CREATININE FOR GFR 0.83 MG/DL (0.55-1.30); GLOMERULAR FILTRATION RATE 69.5 (>32); LDL CHOLESTEROL 104.7 MG/DL (<100); NON-HDL-C 121.7 MG/DL; POTASSIUM SERUM 4.4 MMOL/L (3.5-5.1); SODIUM LEVEL 143.0 MMOL/L (136-145); TRIGLYCERIDES LEVEL 85.0 MG/DL (<150)
[2025-08-15 08:08] LABS: FREE T4 1.22 NG/DL (0.89-1.76)
[2025-08-15 08:09] LABS: TOTAL 25(OH) VITAMIN D 99.9 NG/ML (20.0-100.0)
== END ==
LOC: M LAB 06:49
PROVIDERS: ATTEND Family Medicine
DX: E89.0 Postprocedural hypothyroidism (principal); I10 Essential (primary) hypertension; Z79.899 Other long term (current) drug therapy